=== PATIENT | female | born 1985 | race Caucasian/White ===

== ENCOUNTER 2022-04-01 10:44 | Emergency (ER) | payer OTHER ==
[2022-04-01] MEDS ORDERED: RABIES VACCINE (PCEC)/PF 2.5 UNIT/VIAL IM ONE ×2 (10:45→10:57)
[2022-04-01 11:03] VITALS: RESP 16; BMI 25.7
[2022-04-01 11:13] VITALS: BP 112/67; PULSE 76; TEMP 98
== END 2022-04-01 11:31 | disposition home or self-care (01) ==
LOC: FER 10:44
PROC: 3E0234Z Introduction of Serum, Toxoid and Vaccine into Muscle, Percutaneous Approach (ICD-10-PCS; principal; 2022-04-01)
DX: Z23 Encounter for immunization (principal)
CPT/HCPCS: 90675; 99281-25

== ENCOUNTER 2022-04-08 10:04 | Emergency (ER) | payer OTHER ==
[2022-04-08] MEDS ORDERED: RABIES VACCINE (PCEC)/PF 2.5 UNIT/VIAL IM ONE ×2 (10:19→10:35)
[2022-04-08 10:31] VITALS: BP 105/65; PULSE 73; RESP 20; TEMP 98.6; BMI 22.8
== END 2022-04-08 11:11 | disposition home or self-care (01) ==
LOC: FER 10:04
PROC: 3E0234Z Introduction of Serum, Toxoid and Vaccine into Muscle, Percutaneous Approach (ICD-10-PCS; principal; 2022-04-08)
DX: Z29.14 Encounter for prophylactic rabies immune globulin (principal)
CPT/HCPCS: 90675; 99284-25